=== PATIENT | female | born 1995 | race Caucasian/White ===

== ENCOUNTER 2016-09-15 23:20 | Emergency (ER) | payer OTHER ==
[2016-09-16] MEDS ORDERED: DIPHENHYDRAMINE 50 MG/ML VIAL ONE (02:19)
[2016-09-16] MEDS ORDERED: METHYLPRED SOD SUCC 125 MG/2 ML VIAL ONE (02:19)
== END 2016-09-16 03:54 | disposition home or self-care (01) ==
LOC: ER 23:20
CPT/HCPCS: 96374; 96375